=== PATIENT | female | born 1940 | race Hispanic/Latino ===

== ENCOUNTER → 2018-09-26 | Day surgery (SDC) | payer MEDICARE ==
[2018-09-25 12:04] LABS: BASOPHILS # (AUTO) 0.1 (0.0-0.1); EOSINOPHILS # (AUTO) 0.2 (0.0-0.4); EOSINOPHILS % 2.3 % (0.0-6.0); HEMATOCRIT 35.6 % (34.2-44.1); HEMOGLOBIN 11.2 g/dL (12.0-16.0); LYMPHOCYTES # (AUTO) 1.7 (1.0-3.2); LYMPHOCYTES % 24.2 % (18.0-39.1); MEAN CORPUSCULAR HEMOGLOBIN 26.3 pg (28-32); MEAN CORPUSCULAR HGB CONC 31.5 g/dL (31-35); MEAN CORPUSCULAR VOLUME 83.6 fL (81-99); MONOCYTES # (AUTO) 0.7 (0.2-0.8); MONOCYTES % 9.4 % (4.4-11.3); NEUTROPHILS # (AUTO) 4.3 (2.1-6.9); NEUTROPHILS % 62.8 % (38.7-80.0); PLATELET COUNT 316 x10e3/uL (140-360); RED BLOOD COUNT 4.26 x10e6/uL (3.6-5.1); RED CELL DISTRIBUTION WIDTH 16.4 % (11.7-14.4)
[2018-09-25 12:21] LABS: CALCIUM 9.6 mg/dL (8.4-10.2); CREATININE, SERUM 0.9 mg/dL (0.57-1.11)
[~2018-09-26] MED LIST: ADVAIR 250-501 EACH INH; BUPIVACAINE HC 0.75% PF 10ML VIAL INJ ONE; BUSPIRONE HCL5 MG PO; CHONDR SU A NA/HYALUR SOD 1 EACH KIT IO ONE; CITALOPRAM HBR20 MG PO; COSENTYX INJ; CYCLOPENTOLATE HCL 1% OPTH SOLN 2ML BTL ONE; CYMBALTA30 MG PO; EPINEPHRINE HCL 1:1000 1ML 1 MG/ML AMP ONE; GATIFLOXACIN(OPTH) 5 ML LIQD ONE; LABETALOL HCL100 MG PO; LABETALOL PO; LEVOTHYROXINE112 MCG PO; LEVOTHYROXINE75 MCG PO; LIDOCAINE 2% /EPINEPHRINE 20 ML SDV INJ ONE; LIDOCAINE HCL-PF 4% 40 MG/1 ML 5ML AMP ONE; LOSARTAN-HCTZ1 EAC1 PO; PANTOPRAZOLE SO40 MG PO; PHENYLEPHRINE HCL 2 ML DROPS ONE; PILOCARPINE HCL(OPTH) 15 ML LIQD ONE; POVIDONE IODINE 5% (OPTH) 30 ML BTL ONE; PROPOFOL IV EMULSION 10 MG/ML 20 ML VIAL ONE; ROPINIROLE HCL1 MG PO; TOBRAMYCIN/DEXAMETHASONE(OPTH) 3.5 GM TUBE ONE; ULTRAM50 MG PO; VENTOLIN HFA18 GM INH
[2018-09-26 08:45] VITALS: BP 151/81
== END | disposition home or self-care (01) ==
LOC: OR 06:14
PROVIDERS: ATTEND Ophthalmology
DX: H25.11 Age-related nuclear cataract, right eye (principal); I10 Essential (primary) hypertension; J45.909 Unspecified asthma, uncomplicated; I20.9 Angina pectoris, unspecified; E07.9 Disorder of thyroid, unspecified; M06.9 Rheumatoid arthritis, unspecified; F32.9 Major depressive disorder, single episode, unspecified; Z88.6 Allergy status to analgesic agent; Z88.0 Allergy status to penicillin; Z01.812 Encounter for preprocedural laboratory examination
CPT/HCPCS: 36415; 66984; 80048; 85025; J0171; J2001; J2704; V2632

== ENCOUNTER → 2018-12-19 | Day surgery (SDC) | payer MEDICARE ==
[2018-12-16 14:09] LABS: BASOPHILS # (AUTO) 0.1 (0.0-0.1); BASOPHILS % 0.9 % (0.0-1.0); EOSINOPHILS # (AUTO) 0.2 (0.0-0.4); EOSINOPHILS % 2.1 % (0.0-6.0); HEMATOCRIT 35.8 % (34.2-44.1); HEMOGLOBIN 11.5 g/dL (12.0-16.0); LYMPHOCYTES % 24.6 % (18.0-39.1); MEAN CORPUSCULAR HEMOGLOBIN 27.1 pg (28-32); MEAN CORPUSCULAR HGB CONC 32.1 g/dL (31-35); MEAN CORPUSCULAR VOLUME 84.2 fL (81-99); MONOCYTES # (AUTO) 0.7 (0.2-0.8); MONOCYTES % 8.8 % (4.4-11.3); NEUTROPHILS # (AUTO) 5.1 (2.1-6.9); NEUTROPHILS % 63.2 % (38.7-80.0); PLATELET COUNT 332 x10e3/uL (140-360); RED BLOOD COUNT 4.25 x10e6/uL (3.6-5.1); RED CELL DISTRIBUTION WIDTH 16.2 % (11.7-14.4)
[~2018-12-19] MED LIST changes: +FENTANYL CITRATE/PF 100MCG/2 ML INJ ONE; +LABETALOL HCL200 MG PO; +MIDAZOLAM HCL 2 MG/2 ML VIAL ONE; +ROPINIROLE HC0.25 MG PO
[2018-12-19 09:45] VITALS: BP 149/83
== END | disposition home or self-care (01) ==
LOC: OR 05:44
PROVIDERS: ATTEND Ophthalmology
DX: H25.12 Age-related nuclear cataract, left eye (principal); G47.33 Obstructive sleep apnea (adult) (pediatric); R06.09 Other forms of dyspnea; I10 Essential (primary) hypertension; M19.90 Unspecified osteoarthritis, unspecified site; E07.9 Disorder of thyroid, unspecified; F32.9 Major depressive disorder, single episode, unspecified; Z88.6 Allergy status to analgesic agent; Z88.0 Allergy status to penicillin; Z01.810 Encounter for preprocedural cardiovascular examination; Z01.812 Encounter for preprocedural laboratory examination
CPT/HCPCS: 36415; 85025; 93005; J0171; J2001; J2250; V2632

== ENCOUNTER 2021-02-06 20:11 | Emergency (ER) | payer MEDICARE ==
[~2021-02-06] VITALS: Ht 160 cm; Wt 98.4 kg
[~2021-02-06 20:11] MED LIST changes: -BUPIVACAINE HC 0.75% PF 10ML VIAL INJ ONE; -CHONDR SU A NA/HYALUR SOD 1 EACH KIT IO ONE; -CYCLOPENTOLATE HCL 1% OPTH SOLN 2ML BTL ONE; -EPINEPHRINE HCL 1:1000 1ML 1 MG/ML AMP ONE; -FENTANYL CITRATE/PF 100MCG/2 ML INJ ONE; -GATIFLOXACIN(OPTH) 5 ML LIQD ONE; -LIDOCAINE 2% /EPINEPHRINE 20 ML SDV INJ ONE; -LIDOCAINE HCL-PF 4% 40 MG/1 ML 5ML AMP ONE; -MIDAZOLAM HCL 2 MG/2 ML VIAL ONE; -PHENYLEPHRINE HCL 2 ML DROPS ONE; -PILOCARPINE HCL(OPTH) 15 ML LIQD ONE; -POVIDONE IODINE 5% (OPTH) 30 ML BTL ONE; -PROPOFOL IV EMULSION 10 MG/ML 20 ML VIAL ONE; -TOBRAMYCIN/DEXAMETHASONE(OPTH) 3.5 GM TUBE ONE
[2021-02-06] MEDS ORDERED: SODIUM CHLORIDE 0.9% 1000ML 1,000 ML IV STA (20:21)
[2021-02-06] MEDS ORDERED: FAMOTIDINE 20 MG/2 ML VIAL IV ONE ×2 (20:30→20:56)
[2021-02-06] MEDS ORDERED: ONDANSETRON HCL INJ 2MG/ML 2ML 2 MG/ML VIAL IV ONE (20:30)
[2021-02-06] MEDS ORDERED: DIPHENHYDRAMINE HCL INJ 50 MG/ML VIAL IV ONE (20:30)
[2021-02-06] MEDS ORDERED: KETOROLAC TROMETHAMINE 30 MG/ML VIAL IV ONE ×2 (20:30→21:15)
[2021-02-06] MEDS ORDERED: KETOROLAC TROMETHAMINE 30 MG/ML VIAL ONE (20:55)
[2021-02-06] MEDS ORDERED: DIPHENHYDRAMINE HCL INJ 50 MG/ML VIAL ONE (20:55)
[2021-02-06] MEDS ORDERED: ONDANSETRON HCL INJ 2MG/ML 2ML 2 MG/ML VIAL ONE (20:55)
[2021-02-06] MEDS ORDERED: SODIUM CHLORIDE 0.9% 1000ML 1,000 ML ONE (20:56)
[2021-02-06] MEDS ORDERED: ESGIC 50-325-41 EACH PO (21:28)
[2021-02-06] MEDS ORDERED: CEFTRIAXONE 1 GM VIAL IV ONE (21:30)
[2021-02-06] MEDS ORDERED: BACTRIM 400-801 EACH PO (21:33)
[2021-02-06] MEDS ORDERED: CEFTRIAXONE 1 GM VIAL ONE (21:46)
[2021-02-06 21:51] VITALS: BP 150/84
== END 2021-02-06 21:51 | disposition home or self-care (01) ==
LOC: FSED 20:14
DX: R51.9 Headache, unspecified (principal); R11.2 Nausea with vomiting, unspecified; N30.90 Cystitis, unspecified without hematuria; R53.81 Other malaise; I10 Essential (primary) hypertension; J44.9 Chronic obstructive pulmonary disease, unspecified
CPT/HCPCS: 70450; 70486; 80053; 81003; 85025; 96374; 99284; J0696; J1885; J7030; J1200; J2405

== ENCOUNTER 2022-08-16 17:33 | Emergency (ER) | payer MEDICARE ==
[~2022-08-16] VITALS: Ht 160 cm; Wt 98.4 kg
[~2022-08-16 17:33] MED LIST changes: +BACTRIM 400-801 EACH PO; +ESGIC 50-325-41 EACH PO
[2022-08-16] MEDS ORDERED: CORICIDIN HBP1 EAC1 PO (18:48)
[2022-08-16] MEDS ORDERED: KEFLEX125 MG/5 M PO (18:52)
== END 2022-08-16 19:04 | disposition home or self-care (01) ==
LOC: FSED 17:42
DX: R05.9 Cough, unspecified (principal); J40 Bronchitis, not specified as acute or chronic; J06.9 Acute upper respiratory infection, unspecified; K44.9 Diaphragmatic hernia without obstruction or gangrene; I10 Essential (primary) hypertension; J44.9 Chronic obstructive pulmonary disease, unspecified; M06.9 Rheumatoid arthritis, unspecified; Z87.19 Personal history of other diseases of the digestive system
CPT/HCPCS: 71046; 83518; 87400; 99283

== ENCOUNTER 2023-06-04 07:05 | Observation (INO) | payer MEDICARE ==
[2023-05-29 13:22] LABS: BASOPHILS # (AUTO) 0.1 (0.0-0.1); EOSINOPHILS # (AUTO) 0.2 (0.0-0.4); EOSINOPHILS % 2.2 % (0.0-6.0); HEMATOCRIT 37.6 % (34.2-44.1); HEMOGLOBIN 12.5 g/dL (12.0-16.0); LYMPHOCYTES # (AUTO) 2.3 (1.0-3.2); LYMPHOCYTES % 27.5 % (18.0-39.1); MEAN CORPUSCULAR HEMOGLOBIN 29.9 pg (28-32); MEAN CORPUSCULAR HGB CONC 33.2 g/dL (31-35); MONOCYTES # (AUTO) 0.6 (0.2-0.8); MONOCYTES % 7.7 % (4.4-11.3); NEUTROPHILS # (AUTO) 5.1 (2.1-6.9); NEUTROPHILS % 61.4 % (38.7-80.0); PLATELET COUNT 273 x10e3/uL (140-360); RED BLOOD COUNT 4.18 x10e6/uL (3.6-5.1); RED CELL DISTRIBUTION WIDTH 15.4 % (11.7-14.4); WHITE BLOOD COUNT 8.26 x10e3/uL (4.8-10.8)
[2023-06-04] VITALS (7 sets, daily range): BP systolic 121–149; BP diastolic 62–77; PULSE 58–69; RESP 16–19; TEMP 97.6–98.8; O2SAT 96–99
[~2023-06-04] VITALS: Ht 157.5 cm; Wt 97.5 kg
[~2023-06-04 07:05] MED LIST changes: +AMLODIPINE BESYL5 MG PO; +CARBIDOPA-LEVO1 EA10; +CORICIDIN HBP1 EAC1 PO; +KEFLEX125 MG/5 M PO
[2023-06-04] MEDS ORDERED: DEXAMETHASONE SOD PHOS 10 MG/1 ML VIAL ONE (07:45)
[2023-06-04] MEDS ORDERED: LACTATED RINGER'S 1,000 ML ONE (07:45)
[2023-06-04] MEDS ORDERED: CEFAZOLIN SODIUM 2 GM ONE (07:45)
[2023-06-04] MEDS ORDERED: GABAPENTIN 300 MG CAP ONE (07:45)
[2023-06-04] MEDS ORDERED: CELECOXIB 200 MG CAP ONE (07:45)
[2023-06-04] MEDS ORDERED: ROPIVACAINE 246.25 MG, EPINEPHRINE HCL 1:1000 1ML 0.5 MG, CLONIDINE HCL 0.08 MG, KETORO... INJ ONE ×5 (08:00)
[2023-06-04] MEDS ORDERED: Vancomycin IV 1,000 MG ONE (08:16)
[2023-06-04] MEDS ORDERED: TRANEXAMIC ACID 20 ML ONE (08:16)
[2023-06-04] MEDS ORDERED: SODIUM CHLORIDE 0.9% 500ML 500 ML ONE (08:16)
[2023-06-04] MEDS ORDERED: TRAMADOL HCL 50 MG TAB PO PRN (10:15)
[2023-06-04] MEDS ORDERED: HYDROCODONE/APAP 5MG-325MG TAB PO PRN (10:15)
[2023-06-04] MEDS ORDERED: ONDANSETRON HCL INJ 2MG/ML 2ML 2 MG/ML VIAL IV PRN (10:15)
[2023-06-04] MEDS ORDERED: DOCUSATE SODIUM 100 MG CAP PO PRN (10:15)
[2023-06-04] MEDS ORDERED: HYDROCODONE/APAP 7.5MG-325MG 1 EA TAB PO PRN (10:15)
[2023-06-04] MEDS ORDERED: DIPHENHYDRAMINE HCL INJ 50 MG/ML VIAL IV PRN (10:15)
[2023-06-04] MEDS ORDERED: GLYCOPYRROLATE INJ 0.2 MG/ML VIAL ONE (13:14)
[2023-06-04] MEDS ORDERED: SEVOFLURANE INHAL SOLN 250 ML PEN BTL ONE (13:14)
[2023-06-04] MEDS ORDERED: ATROPINE SULFATE 1 MG/ML VIAL ONE (13:14)
[2023-06-04] MEDS ORDERED: PROPOFOL IV EMULSION 10 MG/ML 20 ML VIAL ONE (13:14)
[2023-06-04] MEDS ORDERED: EPHEDRINE SULFATE INJ 50 MG/ML VIAL ONE (13:14)
[2023-06-04] MEDS ORDERED: DEXAMETHASONE SOD PHOS INJ 4 MG/ML SDV ONE (13:14)
[2023-06-04] MEDS ORDERED: LIDOCAINE HCL 2% LOCAL INJ 5 ML SDV VIAL INJ ONE (13:14)
[2023-06-04] MEDS ORDERED: ONDANSETRON HCL INJ 2MG/ML 2ML 2 MG/ML VIAL ONE (13:14)
[2023-06-04] MEDS ORDERED: ROPIVACAINE 0.5% 5 MG/ML 30 ML SDV ONE (13:48)
[2023-06-04] MEDS ORDERED: EPINEPHRINE HCL 1:1000 1ML 1 MG/ML AMP ONE (13:48)
[2023-06-04] MEDS ORDERED: TRAMADOL HCL 50 MG TAB ONE (15:52)
[2023-06-04] MEDS: SODIUM CHLORIDE 0.9% 1000ML 1,000 ML IV SCH ×2 (17:00→23:30)
[2023-06-04] MEDS: CELECOXIB 100 MG CAP PO SCH (17:34)
[2023-06-04] MEDS: ASPIRIN 325 MG TAB PO SCH ×2 (20:00→23:24)
[2023-06-05 03:09] VITALS: BP 118/58; PULSE 61; RESP 16; TEMP 97.8; O2SAT 96
[2023-06-05 05:35] LABS: HEMATOCRIT 34.3 % (34.2-44.1); HEMOGLOBIN 11.4 g/dL (12.0-16.0)
[2023-06-05 07:45] VITALS: PULSE 51; RESP 18; O2SAT 95
[2023-06-05 08:17] VITALS: BP 128/60; PULSE 58; RESP 18; TEMP 97.4; O2SAT 97
[2023-06-05] MEDS: CELECOXIB 100 MG CAP PO SCH (09:10)
[2023-06-05] MEDS: ASPIRIN 325 MG TAB PO SCH (09:10)
[2023-06-05] MEDS ORDERED: TRAMADOL HCL 50 MG TAB PO PRN (09:30)
[2023-06-05] MEDS ORDERED: DULOXETINE HCL 30 MG DELAYED RELEASE PO SCH (09:30)
[2023-06-05] MEDS ORDERED: PANTOPRAZOLE SOD 40 MG TABEC PO SCH (09:30)
[2023-06-05] MEDS ORDERED: LEVOTHYROXINE SODIUM 100 MCG TAB PO SCH (10:00)
[2023-06-05] MEDS ORDERED: LEVOTHYROXINE SODIUM 75 MCG TAB PO SCH (10:00)
[2023-06-05] MEDS ORDERED: ACETAMINOPHEN 1000 MG/100 ML IV PRN (10:15)
[2023-06-05 12:06] VITALS: BP 124/63; PULSE 62; RESP 18; TEMP 97.8; O2SAT 98
[2023-06-05] MEDS: CARBIDOPA/LEVODOPA 25/100 TAB PO SCH ×2 (12:37→12:38)
[2023-06-05] MEDS ORDERED: ASPIRIN81 MG PO (13:30)
[2023-06-05] MEDS ORDERED: ONDANSETRON HCL 4 MG ORAL DISINTEGRATING TAB PO PRN (14:15)
[2023-06-06] MEDS ORDERED: SALMETEROL XINAF/FLUTICASONE 250/50 MCG INHALER INH SCH (06:00)
[2023-06-06] MEDS ORDERED: AMLODIPINE BESYLATE 5 MG TAB PO SCH (09:00)
[2023-06-06] MEDS ORDERED: LABETALOL HCL 100 MG TAB PO SCH (09:00)
== END 2023-06-05 15:51 | disposition home health service (06) ==
LOC: OR 07:05 → PACU V 13:25 → MED/SURG 17:14
PROVIDERS: ADMIT Specialist; ATTEND Specialist
DX: M17.11 Unilateral primary osteoarthritis, right knee (principal); I10 Essential (primary) hypertension; E78.5 Hyperlipidemia, unspecified; G20.A1 Parkinson's disease without dyskinesia, without mention of fluctuations; F02.80 Dementia in other diseases classified elsewhere, unspecified severity, without behavioral disturbance, psychotic disturbance, mood disturbance, and anxiety; J45.909 Unspecified asthma, uncomplicated; G47.33 Obstructive sleep apnea (adult) (pediatric); E03.9 Hypothyroidism, unspecified; E66.01 Morbid (severe) obesity due to excess calories; Z68.39 Body mass index [BMI] 39.0-39.9, adult; Z01.812 Encounter for preprocedural laboratory examination; Z01.818 Encounter for other preprocedural examination; Z79.899 Other long term (current) drug therapy; Z79.82 Long term (current) use of aspirin; Z88.5 Allergy status to narcotic agent; Z88.0 Allergy status to penicillin
CPT/HCPCS: 27447; 36415 ×2; 73560; 85014; 85018; 85025; 86850; 86900; 94799 ×2; 97110 ×2; 97116 ×2; 97161; 97530 ×2; C1713 ×2; C1776 ×2; G0378 ×2; J0171; J0461; J0690 ×2; J1100 ×2; J1885; J2001; J2405; J2704; J2795; J3370; J7030; J7040; J7121; S0164

== ENCOUNTER 2023-10-15 09:59 | Outpatient (RCR) | payer MEDICARE ==
[~2023-10-15 09:59] MED LIST changes: +ASPIRIN81 MG PO
== END 2023-11-06 ==
LOC: PT 09:59
PROVIDERS: ATTEND Physician Assistant
DX: Z47.1 Aftercare following joint replacement surgery (principal); Z96.651 Presence of right artificial knee joint; M62.81 Muscle weakness (generalized); M25.561 Pain in right knee; M25.661 Stiffness of right knee, not elsewhere classified; R26.2 Difficulty in walking, not elsewhere classified

== ENCOUNTER 2024-07-25 16:34 | Emergency (ER) | payer MEDICARE ==
[~2024-07-25] VITALS: Ht 154.9 cm; Wt 96.3 kg
[2024-07-25] MEDS ORDERED: AZITHROMYCIN250 MG PO (16:56)
[2024-07-25 17:35] VITALS: PULSE 77; RESP 18; TEMP 98.7; O2SAT 98
== END 2024-07-25 17:35 | disposition home or self-care (01) ==
LOC: FSED 16:42
DX: R05.9 Cough, unspecified (principal); J20.9 Acute bronchitis, unspecified; Z11.52 Encounter for screening for COVID-19; R94.31 Abnormal electrocardiogram [ECG] [EKG]
CPT/HCPCS: 0223U; 71046; 83518; 87400; 93005; 99283

== ENCOUNTER 2024-10-19 17:03 | Emergency (ER) | payer MEDICARE ==
[~2024-10-19] VITALS: Ht 154.9 cm; Wt 95.1 kg
[~2024-10-19 17:03] MED LIST changes: +AZITHROMYCIN250 MG PO
[2024-10-19 17:10] VITALS: TEMP 97.9
[2024-10-19] MEDS: AMLODIPINE BESYLATE 5 MG TAB PO ONE (17:38)
[2024-10-19] MEDS: TRAMADOL HCL 50 MG TAB PO ONE (17:38)
[2024-10-19] MEDS: LORAZEPAM INJ 2 MG/ML VIAL IV ONE (17:46)
[2024-10-19 18:39] VITALS: PULSE 68; RESP 16
[2024-10-19] MEDS ORDERED: ASHWAGANDHA PO (18:57)
[2024-10-19 19:15] VITALS: BP 146/74; RESP 18; O2SAT 96
== END 2024-10-19 19:16 | disposition home or self-care (01) ==
LOC: FSED 17:25
DX: I10 Essential (primary) hypertension (principal); J44.9 Chronic obstructive pulmonary disease, unspecified; E03.9 Hypothyroidism, unspecified; I25.10 Atherosclerotic heart disease of native coronary artery without angina pectoris; M06.9 Rheumatoid arthritis, unspecified; G62.9 Polyneuropathy, unspecified; G20.A1 Parkinson's disease without dyskinesia, without mention of fluctuations; Z87.19 Personal history of other diseases of the digestive system
CPT/HCPCS: 80048; 85025; 99283; J2060